=== PATIENT | male | born 1995 | race Caucasian/White ===

== ENCOUNTER → 2020-07-26 | Outpatient (CLI) | payer BC ==
--- NOTE | 2020-07-27 08:09 | REP ---
INDICATION: OTHER DISTURBANCES OF SMELL AND TASTE. COMPARISON: None. TECHNIQUE: Axial CT images with multiplanar reformations. FINDINGS: The paranasal sinuses are clear. Nasal septum is midline, without significant nasal spur. Cribriform plates in normal position, slightly lower on the right. Dentition appears unremarkable. IMPRESSION: Normal examination. <Electronically signed by Jeremias Almaguer > 07/27/20 [id number]
== END ==
LOC: M RAD 17:26
PROVIDERS: ATTEND Otolaryngology
DX: R43.8 Other disturbances of smell and taste (principal)

== ENCOUNTER → 2021-10-23 | Outpatient (CLI) | payer BC | LOC: M PLAIMG 11:03 | PROVIDERS: ATTEND Nurse Practitioner Family | DX: M51.26 Other intervertebral disc displacement, lumbar region (principal); M51.27 Other intervertebral disc displacement, lumbosacral region; R39.11 Hesitancy of micturition ==